=== PATIENT | female | born 1965 ===

== ENCOUNTER → 2024-10-11 | Outpatient (CLI) | payer OTHER ==
[2024-10-12 19:51] LABS: Protein, Urine Quantitative 9.4 mg/dL (0.0-11.9)
[2024-10-12 19:52] LABS: Creatinine Urine 75.2 mg/dL (27.00-270.00)
[2024-10-12 19:56] LABS: Microalbumin, Urine Quant. 15.1 mg/L (0.000-20.000)
== END | disposition home or self-care (01) ==
LOC: LAB SHORT 11:25 → LAB 11:25
PROVIDERS: Internal Medicine Nephrology
DX: N18.2 Chronic kidney disease, stage 2 (mild) (principal); D63.1 Anemia in chronic kidney disease; N25.81 Secondary hyperparathyroidism of renal origin; E55.9 Vitamin D deficiency, unspecified; E78.00 Pure hypercholesterolemia, unspecified; D51.8 Other vitamin B12 deficiency anemias; D52.8 Other folate deficiency anemias; D50.9 Iron deficiency anemia, unspecified; R76.9 Abnormal immunological finding in serum, unspecified; R94.5 Abnormal results of liver function studies; R94.6 Abnormal results of thyroid function studies
CPT/HCPCS: 81050; 82043; 82570; 84156